=== PATIENT | female | born 1970 | race Caucasian/White ===

== ENCOUNTER 2025-05-02 20:17 | Emergency (ER) | payer MEDICAID ==
[~2025-05-02] VITALS: Ht 167.6 cm; Wt 91.7 kg
[2025-05-02 20:47] VITALS: TEMP 99.1
--- NOTE | 2025-05-02 21:13 | RADIOLOGY REPORT ---
DI CHEST,TWO VIEWS INDICATION: COUGH TECHNIQUE: Two views of the chest COMPARISON: None FINDINGS/IMPRESSION: LUNGS: Indeterminate possible opacity of the periphery of the right mid lung zone only well appreciated on PA view of the chest and therefore may be superficial to the lungs. Consider further evaluation with CT of the chest with contrast. MEDIASTINUM: Unremarkable BONES: No acute osseous abnormality OTHER: None
[2025-05-02 21:18] LABS: MEAN PLATELET VOLUME 7.9 FL (7.4-10.4); RED CELL DISTRIBUTION WIDTH 14.0 % (11.5-14.5)
[2025-05-02 21:39] LABS: CREATININE 0.59 MG/DL (0.40-0.90); PRO BRAIN NATRIURETIC PEPTIDE 76 PG/ML (0-125); TOTAL CARBON DIOXIDE 27.0 MMOL/L (24-32); eCRCL 104 ML/MIN; eGFR > 90 ML/MIN
--- NOTE | 2025-05-02 21:40 | ELECTROCARDIOGRAPH REPORT ---
[facility] Test Date: 2025-05-02 Test Time: 21:37:20 Pat Name: HU TALBERT Department: [facility]- Patient ID: [facility]-[id number] Room: Gender: F Latin [employer]cer: : 1970 Requested By: TAYLOR DOWNING Order Number: [id number] Reading MD: Measurements Intervals [place] Rate: 110 P: 28 DC: 156 QRS: -26 QRSD: 82 T: 33 QT: 328 QTc: 444 Interpretive Statements Sinus tachycardia Low voltage, precordial leads Abnormal R-wave progression, early transition Left ventricular hypertrophy Anterior Q waves, possibly due to LVH Please click the below link to view image of tracing.
[2025-05-02] MEDS ORDERED: BENZ-38 PO (22:52)
[2025-05-02] MEDS ORDERED: LEVO-65 PO (22:52)
--- NOTE | 2025-05-02 22:52 | Physician Documentation ---
History of Present Illness ~ Chief Complaint: Cold, cough & congestion Stated Complaint: SOB Time Seen by MD: 22:48 HPI Patient presents to the emergency room with cough cold congestion symptoms over the past two weeks. She denies any sick contacts. Symptoms worsening. Medication Reconciliation Allergies: Coded Allergies: No Known Allergies (Unverified , 05/02/25) Scheduled Benzonatate* (Benzonatate*), 1-2 CAP PO Q6H Levofloxacin (Levofloxacin), 1 TAB PO DAILY Review of Systems ROS All review of systems negative except as per HPI Physical Exam Vital Signs: Temperature: 99.1, Source: Oral, Heart Rate: 116, Respiratory Rate: 19, BP: 142/89, Pulse Oximetry: 96, Weight: 91.680 Oxygen Flow Rate: 0 Physical Exam General: Patient is awake, alert, oriented x4 in no acute distress Head: Normocephalic and atraumatic. Eyes: Conjunctival normal. EOMI. PERRL. ENT: Mucous membranes moist. Neck: Supple, trachea is midline. Chest: Coarse breath sounds bilaterally. There is no accessory muscle use or retractions. Cardiac: Tachycardic and regular without murmurs, gallops, or rubs. Abd: Soft, nondistended, nontender, with normoactive bowel sounds. No guarding, rebound, or rigidity. Extremities: Normal strength. Normal range of motion. No deformities or edema. Back: No midline spinal or CVA tenderness. Skin: Warm and dry with no significant rash appreciated. Neuro: Cranial nerves II-XII grossly intact. No focal neuro deficits. Patient ambulating without difficulty. Progress Results/Orders Results/Orders Orders - GILBERTO GONZALEZ MD Chest,Two Views (05/02/25 20:56) Culture Blood (05/02/25 20:56) Saline Lock (05/02/25 20:56) Oxygen (05/02/25 20:56) Completed Orders - GILBERTO GONZALEZ MD Chest,Two Views (05/02/25 20:56) Cbc/Diff (05/02/25 20:56) BMP (05/02/25 20:56) PBNP (05/02/25 20:56) Lacticsepsis (05/02/25 20:56) Electrocardiogram (05/02/25 20:56) Levofloxacin 750mg Tablet (Levaquin 750m (05/02/25 22:50) Benzonatate Capsule (Tessalon Perles Cap (05/02/25 22:50) Medications Received in ER Medications (Trade) Dose Ordered Sig/Nevin Route PRN Reason Start Time Stop Time Status Last Admin Dose Admin (LEVAQUIN 750mg TABLET) 750 mg ONCE ONCE PO 05/02/25 22:50 05/02/25 22:52 DC 05/02/25 22:59 750 MG (Tessalon Perles capsule) 200 mg ONCE ONCE PO 05/02/25 22:50 05/02/25 22:52 DC 05/02/25 23:00 200 MG Vital Signs 05/02/25 20:47 Temp 99.1 Pulse 116 Resp 19 B/P (MAP) 142/89 Pulse Ox 96 O2 Flow Rate 0 Laboratory Tests Test 05/02/25 21:09 White Blood Count 16.7 H Red Blood Count 4.27 Hemoglobin 13.1 Hematocrit 38.1 Mean Corpuscular Volume 89.1 Mean Corpuscular Hemoglobin 30.6 Mean Corpuscular Hemoglobin Concent 34.3 Red Cell Distribution Width 14.0 Platelet Count 335 Mean Platelet Volume 7.9 Neutrophils (%) (Auto) 65.0 Lymphocytes (%) (Auto) 22.9 Monocytes (%) (Auto) 8.1 Eosinophils (%) (Auto) 3.7 Basophils (%) (Auto) 0.3 Neutrophils # (Auto) 10.9 H Lymphocytes # (Auto) 3.8 Monocytes # (Auto) 1.4 H Eosinophils # (Auto) 0.6 Basophils # (Auto) 0.1 CBC Comment Sodium Level 136 Potassium Level 3.4 L Chloride Level 101 Carbon Dioxide Level 27.0 Anion Gap 8 Blood Urea Nitrogen 4 L Creatinine 0.59 Estimated GFR/1.73 m2 > 90 BUN/Creatinine Ratio 6.8 L Glucose Level 114 H Lactic Acid Level 0.9 Calcium Level 9.1 Pro-B-Type Natriuretic Peptide 76 Albumin 2.6 L Chemistry Comments EKG/XRAY/CT/US/VASC/MRI EKG : Additional Comment EKG interpreted by myself shows time of 09/11/2036, rate 110, sinus tachycardia, left axis deviation, no ST changes Chest X-Ray : Additional Comments One view chest x-ray reviewed with myself and I agree with interpretation. Medical Decision Making Findings Patient presented to the emergency room with cough cold congestion as per HPI. Differentials include but are not limited to pneumonia, viral syndrome, CHF, sepsis therefore emergent labs and imaging indicated. Labs show elevation of white blood cell count with chest x-ray abnormality I do believe patient is suffering from pneumonia. Noted tachycardia. Would have like to of given patient's some IV fluids and re-evaluate however she states she has to go as she has dogs to attend to. Antibiotics initiated. Strong ER precautions reviewed. Departure Disposition: HOME / SELF CARE / HOMELESS Impression: Primary Impression: Community acquired pneumonia Condition: Stable Discharge Instructions: Community-Acquired Pneumonia, Adult, [id number] Referrals: NO PRIMARY CARE PROVIDER (PCP) Prescriptions Benzonatate* (Benzonatate*) 100 Mg Capsule 1-2 CAP PO Q6H for Cough, #30 CAP Prov: GILBERTO GONZALEZ MD 05/02/25 Levofloxacin (Levofloxacin) 500 Mg Tablet 1 TAB PO DAILY for 10 Days, #10 TAB Prov: GILBERTO GONZALEZ MD 05/02/25 Education Educated: Patient Educated regarding: diagnosis, treatment, need for follow up Signature Scribe Signature: No scribe Attestation: The note accurately reflects work and decisions made by me.Gilberto Gonzalez MD 05/02/25 23:07 GILBERTO GONZALEZ MD May 02, 2025 22:52
[2025-05-02] MEDS: levoFLOXACIN 750MG TABLET PO ONE (22:59)
[2025-05-02 23:09] VITALS: BP 132/91; PULSE 111; RESP 20; O2SAT 92
== END 2025-05-02 23:12 | disposition home or self-care (01) ==
LOC: ER 20:18
DX: J18.9 Pneumonia, unspecified organism (principal); R00.0 Tachycardia, unspecified; R06.02 Shortness of breath
CPT/HCPCS: 36415; 71046; 80048; 83605; 83880; 85025; 87040; 93005; 99285